=== PATIENT | male | born 1945 | race Caucasian/White ===

== ENCOUNTER 2024-09-18 10:45 | Emergency (ER) | payer MEDICARE, BC, SELFPAY ==
[2024-09-18 10:52] VITALS: BP 136/58
[2024-09-18 12:15] VITALS: BP 132/64
--- NOTE | 2024-09-18 12:27 | ED.GENMED ---
History of Present Illness
<Dorie Islas PA-C - Last Filed: 09/18/24 20:03>
General
Chief Complaint: Swelling
Source: patient and family
Exam Limitations: none
Time Seen by Provider: 09/18/24 12:10
Nursing documentation reviewed up to this point in time: agreed with
History of Present Illness
History of Present Illness:
pt is a 79 y/o M
from out of town visiting
h/o CAD with stents and cardiomyopathy with EF of 20%
htn, hld
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
here with swelling in legs and L hand
noticed mildly L lower extremity about [address] in a vehicle to come down form [place]
no pain just swelling
today he noticed his L hand was swollen, even his fingers and he also has mild edema in RLE
no chest pain, sob
pt has rectal cancer and had radiation therpay has had ongoing painless rectal bleeding, varies in intensity, sometimes just with wiping and other times much more, with a few clots and coloring toilet bowl red
he saw his colorectal surgeon last week
has suppositories for me
Review of Systems
<Dorie Islas PA-C - Last Filed: 09/18/24 20:03>
Review of Systems
Allergies reviewed?: Yes
All Other Systems: Not applicable
Phy Exam
<Dorie Islas PA-C - Last Filed: 09/18/24 20:03>
Physical Exam
Physical Exam:
GENERAL: Alert , in no apparent distress, nontoxic appearing, no distress
EYE: pupils equal and reactive , mildly pale conjunctiva
NECK: Supple
ENT: o/p clr, mmm.
CARDIAC: Regular rate and rhythm
+ bilateral PITTING EDEMA L slightly greater than R skin colored, no cellulitis
perfused
b/l feet to knees;
LUNGS: Clear breath sounds bilaterally, no acute respiratory distress, no wheezes/rales/rhonchi
ABDOMEN: Soft, without focal tenderness, no r/g, no cvat, normal bowel sounds
NEUROLOGICAL: Alert and oriented, no focal neuro deficits
SKIN: Warm and dry, skin intact.
MUSCULOSKELETAL: moderate edema, well perfused. neg chaim's sign
PSYCH: Normal and appropriate interaction.
Scores
<Dorie Islas PA-C - Last Filed: 09/18/24 20:03>
Heart Failure Risk
Heart Failure Risk Score: Yes
History of Stroke or TIA: No
History of intubation for respiratory distress: No
Heart rate on ED arrival >/= 110: No
SaO2 <90% on arrival on room air: No
HR >/=110 during 3min walk test (or too ill to perform test): No
ECG has acute ischemic changes: No
Urea >/=12mmol/L (BUN 33.6mg/dL): No
Serum CO2>/=35mmol/L: No
Troponin I or T elevated to MA Level (0.4mg/dL): No
NT-proBNP >/=5,000ng/L (5,000pg/ml): No
HF Risk Score: 0
Admission Status: LOW RISK 2.8% Consider discharge to home with f/u visit to PCP/Water Superintendent
Course
<Dorie Islas PA-C - Last Filed: 09/18/24 20:03>
Orders/Labs/Results
Orders:
Orders
09/18/24 12:07
Electrocardiogram (*1) Urgent
Reason for Study: Other
Other Reason for Exam: swelling
EKG- Treatment ONCE
09/18/24 12:16
Complete Blood Count/With Diff Urgent
Comprehensive Metabolic Panel Urgent
NT-proBNP Urgent
09/18/24 12:27
CR Chest - 2 Views Urgent
Comment:
Reason For Exam: edema
09/18/24 13:03
Type+Screen Urgent
Magnesium Urgent
PTT Urgent
Prothrombin Time Urgent
09/18/24 14:40
Furosemide [Lasix] 40 mg IV NOW STA
Abnormal Lab Results
09/18/24 09/18/24
12:16 13:03
RBC 3.82 L 10^6/uL
(4.70-6.10)
Hgb 10.6 L g/dL
(13.0-18.0)
Hct 33.8 L %
(39.0-52.0)
MCHC 31.4 L g/dL
(33.0-37.0)
RDW 16.4 H %
(11.5-14.5)
Absolute Lymphs (auto) 0.6 L 10^3/uL
(1.2-3.4)
Neutrophils % 80.9 H %
(42.2-75.2)
Lymphocytes % 11.4 L %
(20.5-51.1)
PT 30.1 H Sec
(11.4-14.6)
APTT 45.0 H Sec
(23.4-35.0)
Chloride 109 H mmol/L
(98-107)
Glucose 111 H mg/dl
(70-99)
Total Protein 6.1 L g/dl
(6.3-8.2)
Albumin 3.4 L g/dl
(3.5-5.0)
09/18/24 12:16
09/18/24 12:16
Vital Signs
Initial and Last Documented VS:
Initial Vital Signs
Temp Pulse Resp BP Pulse Ox
37.0 C 67 16 136/58 96
09/18/24 10:52 09/18/24 10:52 09/18/24 10:52 09/18/24 10:52 09/18/24 10:52
Last Documented Vital Signs
Temp Pulse Resp BP Pulse Ox
37.0 C 62 23 134/53 100
09/18/24 10:52 09/18/24 14:58 09/18/24 13:54 09/18/24 14:58 09/18/24 15:00
<Shon Leigh, - Last Filed: 09/18/24 14:44>
Orders/Labs/Results
Orders:
Orders
09/18/24 12:07
Electrocardiogram (*1) Urgent
Reason for Study: Other
Other Reason for Exam: swelling
EKG- Treatment ONCE
09/18/24 12:16
Complete Blood Count/With Diff Urgent
Comprehensive Metabolic Panel Urgent
NT-proBNP Urgent
09/18/24 12:27
CR Chest - 2 Views Urgent
Comment:
Reason For Exam: edema
09/18/24 13:03
Type+Screen Urgent
Magnesium Urgent
PTT Urgent
Prothrombin Time Urgent
09/18/24 14:40
Furosemide [Lasix] 40 mg IV NOW STA
Abnormal Lab Results
09/18/24 09/18/24
12:16 13:03
RBC 3.82 L 10^6/uL
(4.70-6.10)
Hgb 10.6 L g/dL
(13.0-18.0)
Hct 33.8 L %
(39.0-52.0)
MCHC 31.4 L g/dL
(33.0-37.0)
RDW 16.4 H %
(11.5-14.5)
Absolute Lymphs (auto) 0.6 L 10^3/uL
(1.2-3.4)
Neutrophils % 80.9 H %
(42.2-75.2)
Lymphocytes % 11.4 L %
(20.5-51.1)
PT 30.1 H Sec
(11.4-14.6)
APTT 45.0 H Sec
(23.4-35.0)
Chloride 109 H mmol/L
(98-107)
Glucose 111 H mg/dl
(70-99)
Total Protein 6.1 L g/dl
(6.3-8.2)
Albumin 3.4 L g/dl
(3.5-5.0)
09/18/24 12:16
09/18/24 12:16
Vital Signs
Initial and Last Documented VS:
Initial Vital Signs
Temp Pulse Resp BP Pulse Ox
37.0 C 67 16 136/58 96
09/18/24 10:52 09/18/24 10:52 09/18/24 10:52 09/18/24 10:52 09/18/24 10:52
Last Documented Vital Signs
Temp Pulse Resp BP Pulse Ox
37.0 C 62 23 134/53 100
09/18/24 10:52 09/18/24 14:58 09/18/24 13:54 09/18/24 14:58 09/18/24 15:00
<Dorie Islas PA-C - Last Filed: 09/18/24 20:03>
MDM/Problems Addressed
Differential Diagnosis Includes:
edema, chf
MDM/Problems Addressed:
79 y/o M with h/o cardiomyopathy EF 20%
from out of town
rectal cancer with ongoing fluctuating rectal bleeding
here with edema in both legs L>R and L hand
no sob, cp
making normal urine
no change to diet
has automobile sales consultant appt in 2 days at home [place]
vitals stable
very well appearing
lungs clear
other than pitting edema, pt looks well
pacer interrogation showed no events
battery life good
BNP minimally elevated
but CXR has a minimal effusion; pt has never been told he had effusion
so clinically this seems as if pt needs diuresis for CHF
needs repeat echo, pt will arrange, well establisthed with his automobile sales consultant
INR therapeutic
1 dose iv lasix here, d/c home with 3 days 20 mg oral tab
k is normal
return precuations.
<Dorie Islas PA-C - Last Filed: 09/18/24 20:03>
*Critical Care Note
Total Time (30-74mins, 75-104mins- exclusive of procedures): Not Applicable
ED Attending Note
<Dorie Islas PA-C - Last Filed: 09/18/24 20:03>
-
Portions of this chart may have been created with voice recognition software.� Occasional wrong word or��sound alike� substitutions may have occurred due to the inherent limitations of voice recognition software.
<Shon Leigh, - Last Filed: 09/18/24 14:44>
ED Attending Note
Patient seen and examined by attending physician: Yes
I performed the substantive portion of visit, reviewed & personally made and approve the management plan that is documented in note by myself or SHANTA.: Yes
ED Attending Note:
I agree with Nadja's note
Patient presents with swelling in his lower extremities and left arm. Patient does not feel particular short of breath. He also has a history of cardiomyopathy with an ejection fraction of 20%. He has a defibrillator which is a [employer]
defibrillator. No chest pain. Patient has not had any changes in his medications recently. He does not take a diuretic.
General: Awake, Alert, Oriented X3. No acute distress.
Vitals: unremarkable
Head: Atraumatic
Eyes: Pupils equal, EOMI
Throat: Airway intact, no exudates
Neck: Trachea midline
Lungs: Few crackles bilateral bases clear and equal b/l
Heart: Regular rate, no murmurs
Abd: Soft, Nontender, No pulsatile mass
Neuro: Nonfocal
Extremities: pulses equal b/l, 2+ edema
Patient's labs show a somewhat elevated BNP. We do not have any old measurements to compare to. His INR is therapeutic.
EKG shows sinus bradycardia with nonspecific intraventricular conduction delay. There is an occasional PVC.
Chest x-ray shows blunting of the right costophrenic angle consistent with a small pleural effusion. No significant pulmonary edema. Suspect the patient is mildly fluid overloaded. Will give a dose of Lasix IV here. Patient is suitable for
discharge. He is visiting the area from [place] and will follow-up with his automobile sales consultant. He has an appointment on Thursday.
Discharge Plan
Departure
Patient Disposition: Home (Routine Discharge)
Date of Disposition: 09/18/24
Time of Disposition: 15:38
Patient with high blood pressure during this ER visit?: No
Discharge Problem:
CHF (congestive heart failure)
Instructions: Dependent Edema (DC), *PCP/Other Water Superintendent Heart Failure Instructions
Prescriptions:
New
furosemide [Lasix] 20 mg tablet
20 mg PO DAILY Qty: 3 0RF
Referrals:
NONE,* [Family Provider] -
Activity Restrictions/Additional Instructions:
YOU HAVE SWELLING IN YOUR LEGS AND LEFT ARM
YOU ALSO HAD A TRACE AMOUNT OF FLUID IN YOUR LUNG (PLEURAL EFFUSION)
YOU MAY HAVE MILD HEART FAILURE
WE GAVE YOU AN IV DOSE OF LASIX 40 MG
THEN YOU HAVE A PRESCRIPTION FOR 3 DAYS OF LASIX 20 MG ONCE A DAY STARTING TOMORROW
LASIX CAN LOWER YOUR POTASSIUM SO MAKE SURE TO EAT A BANANA OR AVOCADO ONCE A DAY
YOU SHOULD SEE YOUR LAND LEASE INFORMATION CLERK WITHIN 2-3 DAYS
RETURN FOR: SHORTNESS OF BREATH, CHEST PAIN, SEVERE SWELLING, NOT URINATING OR ANY CONCERNS.
YOUR HEMOGLOBIN WAS STABLE
AND YOUR INR WAS 2.88
Interventions
Interventions:
*Nursing Disposition Last Done: 09/18/24 16:12
ED- Cardiac Assessment Last Done: 09/18/24 12:20
ED- Pulmonary Assessment Last Done: 09/18/24 12:20
ED-Skin Assessment Last Done: 09/18/24 12:20
Discharge Date and Time
Discharge Date/Time: 09/18/24 16:12
Print Language: ITALIAN
[2024-09-18 12:31] LABS: % Basophils 0.4 % (0-2); % Eosinophils 0.2 % (0-6); % Immature Granulocytes 0.2 % (0-0.5); % Lymphocytes 11.4 % (20.5-51.1); % Monocytes 6.9 % (1.7-9.3); % Neutrophils 80.9 % (42.2-75.2); Absolute Lymphocytes 0.6 10^3/uL (1.2-3.4); Absolute Monocytes 0.4 10^3/uL (0.1-0.6); Absolute Neutrophils 4.1 10^3/uL (1.4-6.5); Hematocrit 33.8 % (39.0-52.0); Hemoglobin 10.6 g/dL (13.0-18.0); Mean Corp Hgb Conc. 31.4 g/dL (33.0-37.0); Mean Corpuscular Hgb 27.7 pg (27.0-31.0); Mean Corpuscular Volume 88.5 fL (80.0-94.0); Nucleated Red Blood Cells % 0 % (-); Platelet Count 158 10^3/uL (130-400); Red Blood Cell Count 3.82 10^6/uL (4.70-6.10); Red Cell Dist. Width 16.4 % (11.5-14.5); White Blood Cell Count 5.1 10^3/uL (4.8-10.8)
[2024-09-18 12:47] LABS: ALT (SGPT) 22 U/L (0-50); AST (SGOT) 24 U/L (17-59); Albumin 3.4 g/dl (3.5-5.0); Alkaline Phosphatase 78 U/L (38-126); Blood Urea Nitrogen 16 mg/dl (9-20); Calcium 8.8 mg/dl (8.4-10.2); Carbon Dioxide 29 mmol/L (22-30); Chloride 109 mmol/L (98-107); Glucose 111 mg/dl (70-99); Sodium 142 mmol/L (135-145); Total Bilirubin 1.3 mg/dl (0.2-1.3); Total Protein 6.1 g/dl (6.3-8.2); eGFR > 60.00
[2024-09-18 12:55] LABS: NT-proBNP 871 pg/ml
[2024-09-18 13:00] VITALS: BP 118/54
[2024-09-18 13:29] LABS: INR 2.88; PT 30.1 Sec (11.4-14.6)
[2024-09-18 13:37] LABS: Magnesium 1.8 mg/dl (1.6-2.3)
[2024-09-18 14:57] VITALS: BP 134/53
[2024-09-18] MEDS: LASIX 40 MG IV (14:58)
== END 2024-09-18 16:12 | disposition home or self-care (01) ==
LOC: EMR 10:45
PROVIDERS: Physician Assistant; EMERGENCY PHYSICIAN Emergency Medicine
DX: R60.0 Localized edema (principal); J90 Pleural effusion, not elsewhere classified; I11.0 Hypertensive heart disease with heart failure; I50.9 Heart failure, unspecified; I25.10 Atherosclerotic heart disease of native coronary artery without angina pectoris; C20 Malignant neoplasm of rectum; E78.5 Hyperlipidemia, unspecified; I42.9 Cardiomyopathy, unspecified; I48.91 Unspecified atrial fibrillation; Z79.01 Long term (current) use of anticoagulants; Z95.5 Presence of coronary angioplasty implant and graft; Z95.810 Presence of automatic (implantable) cardiac defibrillator; Z92.3 Personal history of irradiation; Z88.2 Allergy status to sulfonamides
CPT/HCPCS: 99284; 96374; 93289; 71046; 80053; 83735; 83880; 85025; 85610; 85730; 86850; 86900; 86901; 93005